=== PATIENT | female | born 1965 | race Caucasian/White ===

== ENCOUNTER → 2023-04-23 | Emergency (ER) | payer OTHER ==
[~2023-04-23] MED LIST: NA CHLORIDE 0.9% 1,000 ML ONE; dexAMETHasone 10 MG/ML VIAL ONE
[2023-04-23 22:03] LABS: Absolute Lymphocytes (CBC) 3.2 K/uL (0.7-4.9); Hematocrit 46.2 % (36.0-45.0); Lymphocytes % 31.3 % (15.3-44.8); MCV 91.4 fL (80-100); MPV 7.3 fL (7.6-11.3); Platelets 395 thou/uL (152-406); RBC Red Blood Cell Count 5.06 M/uL (3.86-4.86)
[2023-04-23 22:21] LABS: Potassium 3.8 mEq/L (3.5-5.1)
--- NOTE | 2023-04-23 23:49 | EDPHYS ---
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 States the swelling has decreased since onset. Denies shortness of breath, fever. Historical: - Allergies: 04/23 21:39 Codeine (ITCHING, CAN TAKE WITH BENADRYL); vc1 - Home Meds: 21:39 None [Active]; vc1 - PMHx: 21:39 High Cholesterol; Hypertension; Tachycardia; vc1 - PSHx: 21:39 None; vc1 - Immunization history:: Client reports receiving the 2nd dose of the Covid vaccine. - Social history:: Smoking status: Patient denies any tobacco usage or history of. ROS: 23:59 Constitutional: Negative for fever, chills, and weight loss, kb 23:59 Neck: Positive for swelling, tenderness, 23:59 All other systems are negative, Exam: 23:59 Constitutional: This is a well developed, well nourished patient who is awake, alert, kb and in no acute distress. Head/Face: Normocephalic, atraumatic. ENT: Moist Mucous membranes Cardiovascular: Regular rate Respiratory: Respirations even and unlabored. No increased work of breathing. Talking in full sentences Abdomen/GI: Soft, non-tender. No distention Skin: Warm, dry with normal turgor. Normal color. MS/ Extremity: Pulses equal, no cyanosis. Neurovascular intact. Full, normal range of motion. Neuro: Awake and alert, GCS 15, oriented to person, place, time, and situation. Moves all extremities. Normal gait. 23:59 Neck: External neck: swelling, that is mild, of the right submandibular area and right sternocleidomastoid, Vital Signs: 21:40 BP 166 / 95; Pulse 78; Resp 15; Temp 97.9; Pulse Ox 100% ; Weight 63.5 kg; Height 5 ft. vc1 4 in. ; Pain 2/10; 21:42 Pain 2/10; vc1 22:00 BP 160 / 90; Pulse 72; Resp 17 S; Pulse Ox 100% on R/A; ha1 23:00 BP 155 / 89; Pulse 75; Resp 17 S; Pulse Ox 100% on R/A; ha1 00:00 BP 157 / 86; Pulse 74; Resp 17 S; Pulse Ox 100% on R/A; ha1 04/23 21:40 Body Mass Index 24.03 (63.50 kg, 162.56 cm) vc1 04/23 21:40 Pain Scale: Adult vc1 21:42 Pain Scale: Adult vc1 MDM: 04/23 21:36 Patient medically screened. kb 23:59 Differential diagnosis: allergic reaction, abscess. Data reviewed: vital signs, nurses kb notes. Counseling: I had a detailed discussion with the patient and/or guardian regarding the historical points, exam findings, and any diagnostic results supporting the discharge/admit diagnosis, lab results, radiology results, the need for outpatient follow up, a family practitioner, to return to the emergency department if symptoms worsen or persist or if there are any questions or concerns that arise at home. 04/23 21:41 Order name: CBC with Diff; Complete Time: 22:08 kb 04/23 21:41 Order name: BMP; Complete Time: 22:22 kb 04/23 21:41 Order name: CT Soft Tissue Neck W/contr kb 04/23 21:41 Order name: IV Start; Complete Time: 21:57 kb Administered Medications: 22:39 Drug: NS 0.9% IV 1000 ml IV at 1000 ml once Route: IV; Rate: 1000 ml; Site: right as9 forearm; 00:29 Follow up: Response: No adverse reaction; IV Status: Completed infusion; IV Intake: ha1 1000ml 00:15 Drug: Decadron - Dexamethasone IVP 10 mg IVP once Route: IVP; Site: right forearm; ha1 00:29 Follow up: Response: No adverse reaction; Marked relief of symptoms ha1 Disposition: 00:35 Co-signature as Attending Physician, Gregor Juan MD I agree with the assessment sp4 and plan of care. I reviewed the patient's care provided by the Advanced Practice Provider and agree with the diagnosis and treatment plan. Disposition Summary: 04/23/23 23:48 Discharge Ordered Notes: Location: Home kb Condition: Stable kb Diagnosis - Edema right side of neck kb Followup: kb - With: Emergency Department - When: As needed - Reason: Worsening of condition Followup: kb - With: Private Physician - When: 2 - 3 days - Reason: Recheck today's complaints, Continuance of care, Re-evaluation by your physician Discharge Instructions: - Discharge Summary Sheet kb - Edema, [id number] kb Forms: - Medication Reconciliation Form kb - Thank You Letter kb - Antibiotic Education kb - Prescription Opioid Use kb - Patient Portal Instructions kb - Leadership Thank You Letter kb Signatures: Dispatcher [employer] EDCristina Dallas, KEVEN LEONARDP-Crisleda Brandt RN RN vc1 Anjana Argueta, RN RN ha1 Gregor Juan MD MD sp4 Catarino Pruitt RN RN as9
--- NOTE | 2023-04-23 23:49 | ER ---
Nurse's Notes [facility] Name: Aimee Edwards Age: 57 yrs Sex: Female : 1965 Arrival Date: 04/23/2023 Time: 21:30 Bed 17 Private MD: Cb Malik Diagnosis: Edema right side of neck Presentation: 04/23 21:37 Chief complaint: Patient states: Trouble swallowing while eating prunes, then my neck vc1 started swelling. I took some liquid benadryl and now it is going down. Coronavirus screen: At this time, the client does not indicate any symptoms associated with coronavirus-19. Ebola Screen: Patient negative for fever greater than or equal to 101.5 degrees Fahrenheit, and additional compatible Ebola Virus Disease symptoms Patient denies exposure to infectious person. Patient denies travel to an Ebola-affected area in the 21 days before illness onset. No symptoms or risks identified at this time. Risk Assessment: Do you want to hurt yourself or someone else? Patient reports no desire to harm self or others. Onset of symptoms was April 23, 2023. 21:37 Method Of Arrival: Ambulatory vc1 21:37 Acuity: RUMA 3 vc1 21:42 Initial Sepsis Screen: Does the patient meet any 2 criteria? No. Patient's initial vc1 sepsis screen is negative. Does the patient have a suspected source of infection? No. Patient's initial sepsis screen is negative. Historical: - Allergies: 21:39 Codeine (ITCHING, CAN TAKE WITH BENADRYL); vc1 - Home Meds: 21:39 None [Active]; vc1 - PMHx: 21:39 High Cholesterol; Hypertension; Tachycardia; vc1 - PSHx: 21:39 None; vc1 - Immunization history:: Client reports receiving the 2nd dose of the Covid vaccine. - Social history:: Smoking status: Patient denies any tobacco usage or history of. Screenin:[address] [facility] ED Fall Risk Assessment (Adult) History of falling in the last 3 months, vc1 including since admission No falls in past 3 months (0 pts) Score/Fall Risk Level 0 - 2 = Low Risk Oriented to surroundings, Maintained a safe environment, Educated pt \T\ family on fall prevention, incl call for assistance when getting out of bed, Assessed \T\ reinforced patient's understanding of fall precautions. Abuse screen: Denies threats or abuse. Denies injuries from another. Nutritional screening: No deficits noted. Tuberculosis screening: No symptoms or risk factors identified. Assessment: 22:00 General: Appears comfortable, Behavior is calm, cooperative. Pain: Complains of pain in ha1 HEADACHE Pain does not radiate. Pain currently is 7 out of 10 on a pain scale. Quality of pain is described as pressure, throbbing. Neuro: Level of Consciousness is awake, alert, obeys commands, Oriented to person, place, time, situation. Cardiovascular: Capillary refill < 3 seconds Patient's skin is warm and dry. Respiratory: Airway is patent Respiratory effort is even, unlabored, Respiratory pattern is regular, symmetrical. EENT: Throat is clear Reports SWELLING AROUND THE THROAT . Musculoskeletal: Circulation, motion, and sensation intact. Range of motion: intact in all extremities. 23:00 Reassessment: Patient and/or family updated on plan of care and expected duration. Pain ha1 level reassessed. Patient is alert, oriented x 3, equal unlabored respirations, skin warm/dry/pink. 00:00 Reassessment: Patient and/or family updated on plan of care and expected duration. Pain ha1 level reassessed. Patient is alert, oriented x 3, equal unlabored respirations, skin warm/dry/pink. 00:32 Reassessment: Patient and/or family updated on plan of care and expected duration. Pain ha1 level reassessed. Patient is alert, oriented x 3, equal unlabored respirations, skin warm/dry/pink. Patient states feeling better. Patient states symptoms have improved. Vital Signs: 04/23 21:40 BP 166 / 95; Pulse 78; Resp 15; Temp 97.9; Pulse Ox 100% ; Weight 63.5 kg; Height 5 ft. vc1 4 in. ; Pain 2/10; 21:42 Pain 2/10; vc1 22:00 BP 160 / 90; Pulse 72; Resp 17 S; Pulse Ox 100% on R/A; ha1 23:00 BP 155 / 89; Pulse 75; Resp 17 S; Pulse Ox 100% on R/A; ha1 00:00 BP 157 / 86; Pulse 74; Resp 17 S; Pulse Ox 100% on R/A; ha1 04/23 21:40 Body Mass Index 24.03 (63.50 kg, 162.56 cm) vc1 04/23 21:40 Pain Scale: Adult vc1 21:42 Pain Scale: Adult vc1 ED Course: 04/23 21:35 Patient arrived in ED. mr 21:35 Cb Malik MD is Private Physician. mr 21:36 Cristina Hart FNP-C [facility]. kb 21:36 Gregor Juan MD is Attending Physician. kb 21:39 Triage completed. vc1 21:40 Arm band placed on right wrist. vc1 21:57 Inserted saline lock: 20 gauge in right forearm, using aseptic technique. Blood rv collected. 22:42 Patient moved to [place] via wheelchair. nj 22:51 CT completed. Patient tolerated procedure well. nj 22:54 Patient moved back from [place]. nj 23:00 CT Soft Tissue Neck W/contr In Process Unspecified. EDMS 23:19 Patient has correct armband on for positive identification. Client placed on continuous vc1 cardiac and pulse oximetry monitoring. NIBP monitoring applied. 23:19 No provider procedures requiring assistance completed. vc1 00:30 Provided Education on: FOLLOW UP WITH PCP. ha1 00:30 IV discontinued, intact, bleeding controlled, No redness/swelling at site. Pressure ha1 dressing applied. Administered Medications: 04/23 22:39 Drug: NS 0.9% IV 1000 ml IV at 1000 ml once Route: IV; Rate: 1000 ml; Site: right as9 forearm; 00:29 Follow up: Response: No adverse reaction; IV Status: Completed infusion; IV Intake: ha1 1000ml 00:15 Drug: Decadron - Dexamethasone IVP 10 mg IVP once Route: IVP; Site: right forearm; ha1 00:29 Follow up: Response: No adverse reaction; Marked relief of symptoms ha1 Medication: 04/23 23:19 VIS not applicable for this client. vc1 Intake: 00:29 IV: 1000ml; Total: 1000ml. ha1 Outcome: 04/23 23:48 Discharge ordered by . colby 00:30 Discharged to home ambulatory, with family, ha1 Condition: stable 00:30 Discharge instructions given to patient, family, Instructed on discharge instructions, ha1 follow up and referral plans. medication usage, Demonstrated understanding of instructions, follow-up care, 00:35 Patient left the ED. ha1 Signatures: Dispatcher [employer] EDMS Cristina Hart, BAG CHECKER-C BAG CHECKER-Ckb Vielka Daniel, Reg Reg Johnny Harper Pablo Nelson, RN RN rv Criselda Michel RN RN vc1 Anjana Argueta RN RN ha1 Catarino Pruitt RN RN as9 Corrections: (The following items were deleted from the chart) 04/23 23:01 23:00 Patient moved to [place] via wheelchair. trey yang
[2023-04-24 00:53] VITALS: TEMP 97.9; O2SAT 100
[2023-04-24 01:19] VITALS: BP 157/86
--- NOTE | 2023-04-24 11:42 | RAD REPORT ---
EXAM DESCRIPTION: CT - Soft Tissue Neck W/Contr - 04/24/2023 6:30 am CLINICAL HISTORY: Swelling;Sore throat COMPARISON: None. TECHNIQUE: CT NECK WITH IV CONTRAST on 04/23/2023 12:00 AM HEEL LAYER This exam was performed according to our departmental dose-optimization program, which includes autom ated exposure control, adjustment of the mA and/or kV according to patient size and/or use of iterati ve reconstruction technique. FINDINGS: The visualized portions of the brain and orbits are normal. The oral cavity, oropharynx and nasopharynx are normal. The parapharyngeal fat planes are preserved . The hypopharynx is unremarkable. There is minimal stranding within the anterior neck subcutaneous fat, most prominent just below the l evel of the right submandibular salivary gland. The parotid and submandibular glands are grossly with in normal limits. No intrinsic mass lesions are seen. . The paranasal sinuses and mastoid air cells are clear. No definite pathologically enlarged lymph nodes are identified. The thyroid gland is normal in size and configuration. There is a cystic structure adjacent to the proximal esophagus at the level of the thoracic inlet remy suring 2.6 x 2.0 cm. Anterior fusion of C5-C7 was performed. IMPRESSION: Minimal infiltrative/inflammatory changes of the upper anterior neck subcutaneous fat. 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 Electronically signed by: Teddy Dickerson MD 04/23/2023 11:13 PM HEEL LAYER Due to temporary technical issues with the PACS/Fluency reporting system, reports are being signed by the in house radiologist without review as a courtesy to ensure prompt reporting. The interpreting r adiologist is fully responsible for the content of the report.
== END ==
LOC: ER 21:30
DX: R60.0 Localized edema (principal); E78.00 Pure hypercholesterolemia, unspecified; I10 Essential (primary) hypertension; Z88.5 Allergy status to narcotic agent
CPT/HCPCS: 85025; 80048; 36415; 70491; Q9967; J7030